=== PATIENT | male | born 1965 | race Caucasian/White ===

== ENCOUNTER 2021-04-24 18:26 | Emergency (ER) | payer OTHER, SELFPAY ==
[2021-04-24 18:36] VITALS: BP 173/88; PULSE 18; RESP 18; TEMP 37.4; O2SAT 98; BMI 30.8
--- NOTE | 2021-04-24 19:01 | DI.US.S_ITS ---
PROCEDURE: US SCROTUM INDICATIONS: PAIN TECHNIQUE: Real-time scanning was performed of the scrotum and testicles, with image documentation. Color and pulse Doppler interrogation was performed of both testicles. COMPARISON: None. FINDINGS: Right: Testicle is normal in size at 4.7 x 3.7 x 2.4 cm, and homogenous in echotexture. There is thickening and edema of the epididymis with increased vascularity. There is also increased vascularity of the right testicle relative to the left. There is prominence of the right scrotal wall. There is a right hydrocele with debris.. Left: Testicle is normal in size at 4.7 x 3.5 x 2.4 cm, and homogeneous in echotexture. Epididymis is normal in overall size and morphology. No hydrocele or varicoceles. Overlying scrotal skin is normal in thickness. Doppler: There is asymmetric increased flow to the right testicle relative to the left testicle. IMPRESSION: 1. Findings on the right are consistent with epididymitis and orchitis. There is associated fluid with debris. Cannot exclude infected fluid. Comment: Preliminary findings were reported by the systems integration engineer to the referring provider at the time of study completion. Dictated by: Jose Hester M.D. on 04/24/2021 at 20:42 Approved by: Jose Hester M.D. on 04/24/2021 at 20:47
[2021-04-24 19:23] VITALS: O2SAT 97
--- NOTE | 2021-04-24 21:40 | ED.MALEGU ---
HPI - Male Genitourinary General Chief complaint: Urogenital-Male Stated complaint: Rt Testicular Pain, Possible Hernia Time Seen by Provider: 04/24/21 21:36 Source: patient Mode of arrival: Ambulatory History of Present Illness HPI Narrative: Patient is a 55-year-old male who presents with right testicular pain. He said he was at sitting with clothes on when his small dog have stepped on his right testicle. He has become more painful today. He is worried that there might be a hernia. Related Data Previous Rx's Medication Instructions Recorded doxycycline hyclate 100 mg capsule 100 mg PO BID #20 cap 04/24/21 Review of Systems Review of Systems Narrative: GENERAL: Denies chills,fever HEENT: Denies throat pain RESPIRATORY: Denies dyspnea, cough, wheezing CARDIOVASCULAR: Denies chest pain, palpitations GASTROINTESTINAL: Denies nausea, vomiting : See HPI MUSCULOSKELETAL: Denies extremity pain, injury SKIN: No rash, no laceration, no pruritus NEUROLOGIC: Denies weakness, dizziness, headache, numbness 8 point review of systems is negative except for those stated above and HPI Patient History Social History Smoking Status: Never smoker Smoking Status: Never smoker alcohol intake frequency: holidays/special occasions only Substance Use Type: does not use Exam Initial Vital Signs Initial Vital Signs: Vital Signs Temperature 99.3 F 04/24/21 18:36 Pulse Rate 18 L 04/24/21 18:36 Respiratory Rate 18 04/24/21 18:36 Blood Pressure 173/88 H 04/24/21 18:36 Pulse Oximetry 98 04/24/21 18:36 GENERAL: Well-appearing, well-nourished and in no acute distress. CARDIOVASCULAR: peripheral pulses in tact, cap refill <2 sec RESPIRATORY: No respiratory distress, speaks in full sentences without difficulty ABDOMEN: Soft, nontender, no guarding or rebound : Nurse present for exam, tender right testicle no significant erythema no swelling no hernia is present bilaterally. EXTREMITIES: Normal range of motion, no clubbing or edema. Neurovascularly intact NEUROLOGICAL: Cranial nerves II through XII grossly intact. Normal gait and speech. SKIN: Warm, dry, no petechiae, no rashes or lesions. Course Orders Ordered: ED Orders 04/24/21 19:01 US scrotum Stat Vital Signs Vital signs: Vital Signs - 8 hr 04/24/21 22:00 Pulse Rate 78 Respiratory Rate 16 Blood Pressure 158/78 H Pulse Oximetry 97 [facility] - Male Genitourinary Imaging Data US scrotum: Radiologist's Impression: PROCEDURE:? US SCROTUM ? INDICATIONS:? PAIN ? TECHNIQUE:? Real-time scanning was performed of the scrotum and testicles, with image documentation.? Color and pulse Doppler interrogation was performed of both testicles.? ? COMPARISON:? None. ? FINDINGS:? ? Right:? Testicle is normal in size at 4.7 x 3.7 x 2.4 cm, and homogenous in echotexture.? There is thickening and edema of the epididymis with increased vascularity.? There is also increased vascularity of the right testicle relative to the left.? There is prominence of the right scrotal wall.? There is a right hydrocele with debris..? ? Left:? Testicle is normal in size at 4.7 x 3.5 x 2.4 cm, and homogeneous in echotexture.? Epididymis is normal in overall size and morphology.? No hydrocele or varicoceles.? Overlying scrotal skin is normal in thickness.? ? Doppler:? There is asymmetric increased flow to the right testicle relative to the left testicle. ? IMPRESSION:? ? 1. Findings on the right are consistent with epididymitis and orchitis.? There is associated fluid with debris.? Cannot exclude infected fluid. ? Comment: Preliminary findings were reported by the rip sawyer to the referring provider at the time of study completion. ? ? Dictated by: Jose Hester M.D. on 04/24/2021 at 20:42 ? ? [facility] Narrative Medical decision making narrative: The patient has no sign of torsion. It is tender. Not significantly erythematous. He is given doxycycline for epididymitis and orchitis identified on ultrasound. Discharge Plan Departure Patient Disposition: Home Clinical Impression: Orchitis and epididymitis Instructions: Epididymitis, Orchitis Activity Restrictions/Additional Instructions: *You have been diagnosed with epididymitis orchitis *What to do: Recommend wearing supportive underwear, resting *Continue to take medications as directed Doxycycline 100 mg twice a day for 10 days Ibuprofen 800 mg every 8 hours if needed for [id number] pain Tylenol 1000 mg every 6 hours if needed for [id number] pain *Follow up with your primary care provider in 2-3 days or call [phone] *Return to ER if you should have increasing redness pain swelling or any new, worsening or concerning symptoms Prescriptions: New doxycycline hyclate 100 mg capsule 100 mg PO BID Qty: 20 0RF
[2021-04-24 22:00] VITALS: BP 158/78; PULSE 78; RESP 16; O2SAT 97
== END 2021-04-24 22:01 | disposition home or self-care (01) ==
PROVIDERS: Emergency Provider Emergency Medicine
DX: N45.3 Epididymo-orchitis (principal)
CPT/HCPCS: 76870; 99283